=== PATIENT | male | born 1955 | race Caucasian/White ===

== ENCOUNTER 2017-10-12 12:19 | Emergency (ER) | payer OTHER ==
[~2017-10-12] VITALS: Ht 177.8 cm; Wt 81.7 kg
[2017-10-12] MEDS ORDERED: LISINOPRIL-HCT1 EACH PO (12:36)
[2017-10-12] MEDS ORDERED: NORCO 10-325 T1 EACH PO (13:04)
[2017-10-12 13:57] VITALS: BP 158/91
== END 2017-10-12 13:58 | disposition home or self-care (01) ==
LOC: ER 12:19
DX: S52.202A Unspecified fracture of shaft of left ulna, initial encounter for closed fracture (principal); S09.90XA Unspecified injury of head, initial encounter; S00.83XA Contusion of other part of head, initial encounter; Y04.8XXA Assault by other bodily force, initial encounter; Y93.89 Activity, other specified; Y92.89 Other specified places as the place of occurrence of the external cause; Y99.8 Other external cause status